=== PATIENT | female | born 1970 | race Caucasian/White ===

== ENCOUNTER 2021-01-28 15:25 | Outpatient (RCR) | payer OTHER, SELFPAY ==
[2021-02-18] MEDS: COVID-19 VACC, MRNA(PFIZER)/PF 30 MCG/0.3 ML SYRINGE IM (07:40)
== END 2021-04-22 23:59 ==
LOC: IMMUN 15:25
PROVIDERS: Referring Provider Family Medicine; Visit Provider Family Medicine
DX: Z23 Encounter for immunization (principal)
CPT/HCPCS: 0001A; 0002A; 91300